=== PATIENT | female | born 1960 ===

== ENCOUNTER 2024-11-11 06:15 | Day surgery (SDC) | payer OTHER ==
[2024-11-11] MEDS ORDERED: MIDAZOLAM HCL 2 MG/2 ML VIAL IV ONE (12:45)
[2024-11-11] MEDS ORDERED: fentaNYL CITRATE 50 MCG/ML AMPUL IV PUSH ONE (12:45)
[2024-11-11] MEDS ORDERED: DIPHENHYDRAMINE HCL 50 MG/ML VIAL 1ML IV ONE (12:45)
[2024-11-11] MEDS ORDERED: FLUMAZENIL 0.5 MG/5 ML ML IV STA (12:45)
== END 2024-11-11 14:55 | disposition home or self-care (01) ==
LOC: AMB-ENDOS 06:15 → EDBD 14:30 → AMB-ENDOS 14:30
PROVIDERS: ATTEND Internal Medicine
DX: K31.7 Polyp of stomach and duodenum (principal); K21.9 Gastro-esophageal reflux disease without esophagitis; K29.00 Acute gastritis without bleeding; K44.9 Diaphragmatic hernia without obstruction or gangrene